=== PATIENT | female | born 1990 | race Caucasian/White ===

== ENCOUNTER 2020-06-15 16:39 | Emergency (ER) | payer SELFPAY ==
[~2020-06-15] VITALS: Ht 160 cm; Wt 49.6 kg
[2020-06-15 18:40] LABS: ALANINE AMINOTRANSFERASE 19 U/L (12-78); ALBUMIN 4.2 g/dL (3.4-5.0); ANION GAP 4 mmol/L (5-15); CHLORIDE 109 mmol/L (98-107)
[2020-06-15 18:42] LABS: ALKALINE PHOSPHATASE 52 U/L (45-117); BILIRUBIN,TOTAL 0.3 mg/dL (0.2-1.0); TOTAL PROTEIN 7.1 g/dL (6.4-8.2)
--- NOTE | 2020-06-15 18:56 | NUR ---
patient in bed awaiting labs. patient had head injuries in past, and recently felt numbness/tingling in hands and feet. she is concerned they are connected. vss
[2020-06-15 19:07] VITALS: BP 122/78
== END 2020-06-15 19:25 | disposition home or self-care (01) ==
LOC: ED 18:14
DX: J00 Acute nasopharyngitis [common cold] (principal); R20.2 Paresthesia of skin
CPT/HCPCS: 36415; 80053; 99283